=== PATIENT | male | born 1980 | race Caucasian/White ===

== ENCOUNTER 2021-03-17 15:37 | Emergency (ER) | payer SELFPAY ==
[~2021-03-17 15:37] MED LIST: ANTIVERT PO; NO HOME MEDS
[2021-03-17 16:23] LABS: HEMOGLOBIN 17.6 g/dl (14.0-18.0); IMMATURE GRANULOCYTES 0.4 % (0.0-5.0); MEAN CELL VOLUME 92.4 fL CALC (80.0-100.0); MEAN CORPUSCULAR HGB 31.7 pG CALC (26.0-32.0); MEAN CORPUSCULAR HGB CONC 34.2 g/dL CAL (32.0-36.0); NEUT# 13.81 thou/uL (1.82-7.42); RED BLOOD COUNT 5.56 mill/uL (4.70-6.10); RED CELL DISTRI WIDTH 12.4 % (11.5-15.5)
[2021-03-17 16:26] LABS: HEMATOCRIT 51.4 % (39.0-50.0)
[2021-03-17 16:39] LABS: ALKALINE PHOSPHATASE 76 u/l (38-126); AMYLASE 70 u/l (30-110); BILIRUBIN, TOTAL 0.7 mg/dL (0.0-1.4); CARBON DIOXIDE 28 mmol/l (22-30); CPK 290 u/l (52-200); ETHYL ALCOHOL 0 mg/dl (0-30); LIPASE 117 u/l (23-300); POTASSIUM 4.1 mmol/l (3.5-5.1); SGOT/AST 50 u/l (17-59)
[2021-03-17 16:40] LABS: ALBUMIN 5.5 g/dL (3.2-5.0); ANION GAP 21 (6-22 (CALC)); BUN 28 mg/dL (9-20); BUN/CREATININE RATIO 9 (12-20 (CALC)); CHLORIDE 87 mmol/l (95-108); CREATININE 3.1 mg/dL (0.7-1.3); GFR 23 ML/MIN (>=60 (CALC)); GFR FOR AFR.AMER. 27 ML/MIN (>=60 (CALC)); SODIUM 132 mmol/l (137-146); TOTAL PROTEIN 10.1 g/dL (6.3-8.2)
[2021-03-17 17:31] LABS: ACT PARTIAL THROMBO TIME 24.8 SECONDS (20.0-32.5); PROTHROMBIN TIME 10.3 SECONDS (9.0-12.5)
[2021-03-17 20:52] VITALS: BP 114/69
== END 2021-03-17 20:40 | disposition left against medical advice (07) | DRG 392 ==
LOC: ED 15:37
DX: R10.11 Right upper quadrant pain (principal); N17.9 Acute kidney failure, unspecified; F17.290 Nicotine dependence, other tobacco product, uncomplicated; Z91.19 Patient's noncompliance with other medical treatment and regimen; Z20.822 Contact with and (suspected) exposure to COVID-19

== ENCOUNTER 2021-03-28 23:53 | Emergency (ER) | payer SELFPAY ==
[2021-03-29 01:12] LABS: IMMATURE GRANULOCYTES 0.5 % (0.0-5.0); MEAN CELL VOLUME 95.3 fL CALC (80.0-100.0); MEAN CORPUSCULAR HGB 31.8 pG CALC (26.0-32.0); MEAN CORPUSCULAR HGB CONC 33.3 g/dL CAL (32.0-36.0); NEUT# 4.55 thou/uL (1.82-7.42); RED CELL DISTRI WIDTH 12.9 % (11.5-15.5)
[2021-03-29 01:15] LABS: HEMATOCRIT 38.1 % (39.0-50.0); HEMOGLOBIN 12.7 g/dl (14.0-18.0)
[2021-03-29 01:32] LABS: ALKALINE PHOSPHATASE 49 u/l (38-126); CARBON DIOXIDE 26 mmol/l (22-30); ETHYL ALCOHOL 35 mg/dl (0-30); LIPASE 70 u/l (23-300); POTASSIUM 3.6 mmol/l (3.5-5.1); SGOT/AST 24 u/l (17-59); SODIUM 138 mmol/l (137-146)
[2021-03-29 01:36] LABS: ANION GAP 12 (6-22 (CALC)); BUN 8 mg/dL (9-20); BUN/CREATININE RATIO 7 (12-20 (CALC)); CHLORIDE 104 mmol/l (95-108); CREATININE 1.1 mg/dL (0.7-1.3); GFR > 60 ML/MIN (>=60 (CALC)); GFR FOR AFR.AMER. > 60 ML/MIN (>=60 (CALC))
[2021-03-29 01:37] LABS: ALBUMIN 3.8 g/dL (3.2-5.0); BILIRUBIN, TOTAL 0.2 mg/dL (0.0-1.4); TOTAL PROTEIN 6.5 g/dL (6.3-8.2)
[2021-03-29 02:20] LABS: URINE BILIRUBIN - DIPSTICK NEGATIVE (NEGATIVE); URINE BLOOD DIPSTICK NEGATIVE (NEGATIVE); URINE COLOR YELLOW; URINE GLUCOSE - DIPSTICK NEGATIVE (NEGATIVE); URINE KETONE NEGATIVE (NEGATIVE); URINE LEUK ESTERASE NEGATIVE (NEGATIVE); URINE PH 5.5 (4.5-8.0); URINE PROTEIN - DIPSTICK NEGATIVE (NEG-TRACE); URINE UROBILINOGEN - DIPSTICK 0.2 E.U./dL (0.2)
[2021-03-29 02:25] LABS: URINE NITRITE - DIPSTICK NEGATIVE (Negative)
[2021-03-29 09:01] VITALS: BP 116/75
== END 2021-03-29 09:04 | DRG 918 ==
LOC: ED 23:53
DX: T42.4X2A Poisoning by benzodiazepines, intentional self-harm, initial encounter (principal); T51.92XA Toxic effect of unspecified alcohol, intentional self-harm, initial encounter; F15.10 Other stimulant abuse, uncomplicated; F17.200 Nicotine dependence, unspecified, uncomplicated; Z20.822 Contact with and (suspected) exposure to COVID-19

== ENCOUNTER 2023-01-09 17:05 | Emergency (ER) | payer SELFPAY ==
[2023-01-09] VITALS (7 sets, daily range): BP systolic 90–116; BP diastolic 59–75
[~2023-01-09] VITALS: Ht 167.6 cm; Wt 79.4 kg
[2023-01-09] MEDS ORDERED: KEFLEX500 MG PO (19:24)
[2023-01-09] MEDS ORDERED: LORTAB 7.57.5 MG PO (19:24)
[2023-01-09] MEDS ORDERED: BACTROBAN TOP (19:42)
== END 2023-01-09 19:57 | disposition home or self-care (01) | DRG 605 ==
LOC: ED 17:05
PROC: 0HQMXZZ Repair Right Foot Skin, External Approach (ICD-10-PCS; principal; 2023-01-09)
DX: S91.211A Laceration without foreign body of right great toe with damage to nail, initial encounter (principal); W31.2XXA Contact with powered woodworking and forming machines, initial encounter; F17.210 Nicotine dependence, cigarettes, uncomplicated; F17.290 Nicotine dependence, other tobacco product, uncomplicated